=== PATIENT | male | born 1960 | race African-American/Black ===

== ENCOUNTER 2017-09-28 06:04 | Day surgery (SDC) | payer OTHER ==
[2017-09-26 14:56] VITALS: BMI 32.3
--- NOTE | 2017-09-28 08:04 | HP ---
History & Physical Update - History History: No Change - Physical Physical: No Change - Assessment Assessment: No Change - Plan Plan: No Change
[2017-09-28] MEDS ORDERED: ACETAMINOPHEN 1000 MG/100 ML VIAL (NON FORMULARY) IVPB ONE (08:05)
[2017-09-28] MEDS ORDERED: MIDAZOLAM HCL 2 MG/2 ML SINGLE DOSE VIAL ONE (08:08)
[2017-09-28] MEDS ORDERED: LIDOCAINE HCL/PF 1% SDV 5ML VIAL ONE (08:11)
[2017-09-28] MEDS ORDERED: ceFAZolin SODIUM 1 GM VIAL IVPB ONE (08:11)
[2017-09-28] MEDS ORDERED: BUPIVACAINE HCL/PF 0.25% (2.5MG/ML) 10 ML VIAL ONE (08:11)
[2017-09-28] MEDS ORDERED: PROPOFOL 20 ML ONE (08:12)
[2017-09-28] MEDS ORDERED: SUCCINYLCHOLINE CHLORIDE 200 MG/10 ML VIAL ONE (08:12)
[2017-09-28] MEDS ORDERED: DEXTROSE 5%-0.45% SALINE 1,000 ML IV SCH (08:15)
[2017-09-28] MEDS ORDERED: IBUPROFEN 800 MG/8 ML IJ IVPB SCH (08:15)
[2017-09-28] MEDS ORDERED: LIDOCAINE HCL 1%, 10 MG/ML (20ML VIAL) NR ONE (08:22)
[2017-09-28] MEDS ORDERED: BUPIVACAINE HCL/PF 0.25% (2.5MG/ML) 10 ML VIAL IJ ONE (08:22)
[2017-09-28] MEDS ORDERED: ACETAMINOPHEN INJECTION 100 ML IVPB ONE (09:09)
[2017-09-28] MEDS ORDERED: IBUPROFEN 800 MG/8 ML IJ IVPB ONE (09:09)
[2017-09-28] MEDS ORDERED: oxyCODONE HCL 5 MG TABLET PO PRN (09:26)
[2017-09-28] MEDS ORDERED: ONDANSETRON 4 MG/2 ML VIAL IVPUSH PRN (09:26)
[2017-09-28] MEDS ORDERED: PROMETHAZINE HCL 25 MG/1 ML VIAL IVPUSH PRN (09:26)
[2017-09-28] MEDS ORDERED: LACTATED RINGERS SOLUTION 1,000 ML IV SCH (09:30)
[2017-09-28 10:12] VITALS: TEMP 97.5
[2017-09-28 13:18] VITALS: BP 118/72; PULSE 54
--- NOTE | 2017-10-01 12:35 | PATH ---
Surgical Pathology Report Patient Name: MAXIM UERÑA [facility]. Rec. #: [id number] /Age/Gender: 1960 (Age: 57) / M Account: [id number] Location: [facility] SURGICAL Taken: 09/28/2017 Received: 09/28/2017 Reported: 10/01/2017 Physicians: Shaka Elizabeth M.D. Specimen(s) Received RIGHT HYDROCELE Clinical History Hydrocele Final Diagnosis HYDROCELE, RIGHT, HYDROCELECTOMY: MESOTHELIAL LINED FIBROMEMBRANOUS TO LOOSE CONNECTIVE TISSUE CONSISTENT WITH HYDROCELE. Electronically Signed Oneida Ramos M.D. Gross Description Received in formalin labeled "right hydrocele," is a 1.7 x 1.0 x 0.5 cm wilkerson-pink portion of fibromembranous tissue. The specimen is trisected and entirely submitted in one cassette. /09/28/2017 saudi09/28/2017
--- NOTE | 2017-11-02 10:12 | OP ---
DATE OF OPERATION: DATE OF DICTATION: 11/02/2017 SURGEON: Shaka Elizabeth MD PREOPERATIVE DIAGNOSIS: Right hydrocele. POSTOPERATIVE DIAGNOSIS: Right hydrocele. PROCEDURE: Right hydrocelectomy. ANESTHESIA: General. SPECIMEN: Portion of right hydrocele. ESTIMATED BLOOD LOSS: Minimal. PREOPERATIVE INDICATIONS: The patient is a 57-year-old male with a large and uncomfortable right-sided hydrocele. He comes to the OR for repair. OPERATION: Patient was brought to the OR, placed on the table in the supine position, given general anesthesia and IV antibiotics. The groin was shaved and prepped and draped sterilely. A transverse incision was made into the right hemiscrotum down to the tunica vaginalis. This was then opened and a large amount of fluid which was straw colored was then drained out. The hydrocele sac was then inverted around the testicle and using the Lord procedure I imbricated the hydrocele tissue and sewed it in a circumferential pattern. A small portion was sent for histopathological diagnosis. Good hemostasis was maintained throughout. Testicle was reintroduced into the scrotum which was then closed in 2 layers with chromic suture. The patient was woken up. SHAKA ELIZABETH M.D. [id number]
== END 2017-09-28 13:50 | disposition home or self-care (01) ==
LOC: JASU-SURG 06:04
PROVIDERS: ATTEND Urology
PROC: 0VB60ZZ Excision of Right Tunica Vaginalis, Open Approach (ICD-10-PCS; principal; 2017-09-28 08:00)
DX: N43.3 Hydrocele, unspecified (principal)
CPT/HCPCS: 88304-TC; 94760; J0131

== ENCOUNTER 2020-11-26 09:20 | Emergency (ER) | payer OTHER ==
[2020-11-26 09:26] VITALS: BP 133/68; PULSE 61; TEMP 97.9; BMI 30.7
[2020-11-26] MEDS ORDERED: KETOROLAC TROMETHAMINE 60 MG/2 ML VIAL IM ONE (10:33)
[2020-11-26] MEDS ORDERED: KETOROLAC TROMETHAMINE 60 MG/2 ML VIAL ONE (11:14)
== END 2020-11-26 11:21 | disposition home or self-care (01) ==
LOC: JER 09:20
PROC: 3E0233Z Introduction of Anti-inflammatory into Muscle, Percutaneous Approach (ICD-10-PCS; principal; 2020-11-26)
DX: M54.6 Pain in thoracic spine (principal); M79.9 Soft tissue disorder, unspecified; V89.2XXA Person injured in unspecified motor-vehicle accident, traffic, initial encounter; Y92.9 Unspecified place or not applicable
CPT/HCPCS: 99283-25

== ENCOUNTER 2023-02-14 03:51 | Day surgery (SDC) | payer OTHER ==
[2023-02-13 16:07] VITALS: BMI 20.9
[2023-02-14] MEDS ORDERED: ONDANSETRON 4 MG/2 ML VIAL IVPUSH PRN (12:57)
[2023-02-14] MEDS ORDERED: oxyCODONE HCL 5 MG TABLET PO PRN (12:57)
[2023-02-14] MEDS ORDERED: PROMETHAZINE HCL 25 MG/1 ML VIAL IVPB PRN (12:57)
[2023-02-14] MEDS ORDERED: LACTATED RINGERS SOLUTION 1,000 ML IV SCH (13:00)
[2023-02-14] MEDS ORDERED: GENTAMICIN SO4 80 MG/2 ML VIAL ONE ×2 (13:53→15:04)
[2023-02-14] MEDS ORDERED: VANCOMYCIN 1,000 MG VIAL (RESTRICTED TO ID ONLY) ONE ×2 (13:53→15:04)
[2023-02-14] MEDS ORDERED: BUPIVACAINE HCL/PF 0.25% (2.5MG/ML) 10 ML VIAL ONE ×2 (15:04→17:49)
[2023-02-14] MEDS ORDERED: LIDOCAINE HCL 1%, 10 MG/ML (20ML VIAL) ONE ×2 (15:04→17:49)
[2023-02-14] MEDS ORDERED: ceFAZolin SODIUM 1 GM VIAL ONE (16:18)
[2023-02-14] MEDS ORDERED: PROPOFOL 20 ML ONE (16:18)
[2023-02-14] MEDS ORDERED: SODIUM CHLORIDE 0.9% P/F 10 ML VIAL IJ ONE (16:18)
[2023-02-14] MEDS ORDERED: MIDAZOLAM HCL 2 MG/2 ML SINGLE DOSE VIAL ONE (16:18)
[2023-02-14] MEDS ORDERED: VANCOMYCIN 1,000 MG VIAL (RESTRICTED TO ID ONLY) IVPB ONE ×2 (16:32→16:50)
[2023-02-14] MEDS ORDERED: GENTAMICIN SO4 80 MG/2 ML VIAL IVPB ONE ×3 (16:32→16:50)
[2023-02-14] MEDS ORDERED: ceFAZolin SODIUM 1 GM VIAL IVPB ONE ×2 (16:33→16:50)
[2023-02-14] MEDS ORDERED: FLUCONAZOLE 200 MG PREMIX BAG (IN SALINE) IVPB ONE (16:33)
[2023-02-14] MEDS ORDERED: LIDOCAINE HCL 1%, 10 MG/ML (20ML VIAL) INF ONE (16:36)
[2023-02-14] MEDS ORDERED: BUPIVACAINE HCL/PF 0.25% (2.5MG/ML) 10 ML VIAL IJ ONE (16:37)
[2023-02-14] MEDS ORDERED: GLYCOPYRROLATE 0.2 MG/1 ML VIAL ONE (16:52)
[2023-02-14] MEDS ORDERED: ONDANSETRON 4 MG/2 ML VIAL ONE (17:01)
[2023-02-14] MEDS ORDERED: DEXAMETHASONE SOD PHOSPHATE 4 MG/1 ML VIAL ONE (17:01)
[2023-02-14] MEDS ORDERED: ACETAMINOPHEN INJECTION 100 ML IVPB ONE (17:06)
[2023-02-14 20:10] VITALS: RESP 14; TEMP 97.1
[2023-02-14 20:12] VITALS: BP 120/60; PULSE 50
== END 2023-02-14 23:42 | disposition home or self-care (01) ==
LOC: JASUSAT 03:51 → JASU-SURG 03:51 → J8W 20:24 → JASUSAT 23:42
PROVIDERS: ATTEND Urology
PROC: 0VUS0JZ Supplement Penis with Synthetic Substitute, Open Approach (ICD-10-PCS; principal; 2023-02-14 15:30)
DX: N52.9 Male erectile dysfunction, unspecified (principal)
CPT/HCPCS: 54405; C1813; 94760; C2622